=== PATIENT | female | born 1940 | race Caucasian/White ===

== ENCOUNTER 2023-06-05 14:57 | Emergency (ER) | payer OTHER ==
[~2023-06-05] VITALS: Ht 152.4 cm; Wt 59.0 kg
[2023-06-05] MEDS ORDERED: AMOX-1230 PO (15:13)
[2023-06-05 15:20] VITALS: BP 130/80; PULSE 66; RESP 20; TEMP 98.2
[2023-06-05 16:48] VITALS: BP 129/60; PULSE 75; RESP 18; TEMP 98.3; O2SAT 98
== END 2023-06-05 16:51 ==
LOC: MED 14:57
DX: L02.01 Cutaneous abscess of face (principal); L03.211 Cellulitis of face; Z88.0 Allergy status to penicillin; Z79.899 Other long term (current) drug therapy
CPT/HCPCS: 99283